=== PATIENT | male | born 1960 | race Caucasian/White ===

== ENCOUNTER 2017-04-12 14:58 | Outpatient (RCR) | payer BC | END 2017-06-11 16:45 | disposition home or self-care (01) | LOC: CARDREHAB 14:58 | DX: I21.4 Non-ST elevation (NSTEMI) myocardial infarction (principal); Z95.5 Presence of coronary angioplasty implant and graft ==

== ENCOUNTER 2018-12-26 16:00 | Outpatient (RCR) | payer BC | END 2018-12-26 17:00 | disposition still patient (30) | LOC: CARDREHAB 16:00 | DX: Z48.812 Encounter for surgical aftercare following surgery on the circulatory system (principal); Z95.1 Presence of aortocoronary bypass graft ==